=== PATIENT | female | born 1955 | race Caucasian/White ===

== ENCOUNTER → 2016-12-09 | Outpatient (CLI) | payer OTHER, SELFPAY ==
[~2016-12-09] MED LIST: CELEXA 10 MG TA10 M1 PO; CELEXA 20 MG TA20 M1 PO; CELEXA 20 MG TA20 MG PO; ESTRACE0.5 MG PO; ESTRACE1 MG PO; GABAPENTIN PO; HYDROCODON-ACE1 EAC7 PO; HYDROCODON-ACE1 EAC8 PO; LEXAPRO 10 MG T10 MG PO; METHADONE HCL 110 M1 PO; PRILOSEC PO; PRILOSEC40 MG PO; PROVERA2.5 MG PO; WELLBUTRIN 75 M75 M1 PO; XANAX 0.25 MG0.25 MG PO; ZOCOR40 MG PO
== END ==
LOC: RAD 01:07
DX: Z12.31 Encounter for screening mammogram for malignant neoplasm of breast (principal)